=== PATIENT | female | born 1955 | race Caucasian/White ===

== ENCOUNTER 2017-02-12 09:32 | Emergency (ER) | payer BC ==
[~2017-02-12] VITALS: Ht 170.2 cm; Wt 84.5 kg
[2017-02-12 11:37] LABS: CALCIUM 9.1 mg/dL (8.5-10.1); CARBON DIOXIDE 34.2 mmol/L (21-32); POTASSIUM SERUM 4.7 mmol/L (3.5-5.1)
[2017-02-12 11:38] LABS: BASOPHIL % 0.6 % (0-2); PLATELET COUNT 245 x10^3mcL (130-400); RED CELL DISTRIBUTION WIDTH 12.6 % (11.5-14.5)
[2017-02-12 11:41] LABS: ALBUMIN 3.6 g/dL (3.4-5.0); BILIRUBIN TOTAL 0.4 mg/dL (0.20-1.00); TOTAL PROTEIN, SERUM 6.6 g/dL (6.4-8.2)
[2017-02-12 13:36] VITALS: BP 123/70
== END 2017-02-12 13:36 | disposition home or self-care (01) ==
LOC: ED 09:32
PROVIDERS: Emergency Medicine
DX: N23 Unspecified renal colic (principal); R07.89 Other chest pain
CPT/HCPCS: 83880; J1885